=== PATIENT | male | born 1945 | race Caucasian/White ===

== ENCOUNTER 2017-08-09 19:03 | Emergency (ER) | payer MEDICARE, OTHER ==
[2017-08-09] MEDS ORDERED: Sodium Chloride 0.9% 10 ML Syringe FLUSH PRN (19:31)
--- NOTE | 2017-08-09 19:39 | EDM.PDOC ---
ED HPI GENERAL MEDICAL PROBLEM - General Chief Complaint: General Stated Complaint: weak Time Seen by Provider: 08/09/17 19:03 Source of Information: Reports: Patient, EMS, Family History Limitations: Reports: No Limitations - History of Present Illness INITIAL COMMENTS - FREE TEXT/NARRATIVE: Patient comes in tonight by ambulance patient had been feeling weak over the course the day and was unable to assist the patient also needed to call 911 for further assistance in guidance. Patient has an extensive history of cancer and is undergoing radiation for a right-sided tumor in his brain last treatment was in June. Patient was seen by his PCP last week and was also seen yesterday, he was super therapeutic INR greater than 9. Patient began feeling more weak yesterday according to the . Started having more facial droop which on the left side and more upper arm weakness as well. Patient had a fall late last night that required the police to assist in getting him back into bed. However the course of the day it's became more significant on his weakness needing to call ambulance to transport here for further evaluation. Onset: Gradual Duration: Getting Worse Location: Reports: Generalized Severity: Moderate - Related Data Allergies Allergy/AdvReac Type Severity Reaction Status Date / Time No Known Allergies Allergy Verified 08/09/17 19:38 Home Meds: Home Meds Albuterol [Proventil HFA] 2 puff INH Q4H PRN 02/06/16 [History] Albuterol/Ipratropium [DuoNeb 3.0-0.5 MG/3 ML] 3 ml NEB Q6HRRT 02/06/16 [History ] Allopurinol [Zyloprim] 300 mg PO DAILY 02/06/16 [History] Budesonide [Pulmicort] 0.5 mg NEB BID 02/06/16 [History] Codeine/guaiFENesin [Robitussin AC] 5 ml PO Q4H PRN 02/06/16 [History] Formoterol Fumarate [Foradil] 12 mcg INH BID 02/06/16 [History] Furosemide 40 mg PO DAILY 02/06/16 [History] Multivitamin [Multiple Vitamins] 1 tab PO DAILY 02/06/16 [History] Potassium Chloride [Klor-Con 10] 10 meq PO DAILY 02/06/16 [History] Tiotropium [Spiriva HandiHaler] 18 mcg INH DAILY 02/06/16 [History] Warfarin [Coumadin] 5 mg PO ASDIRECTED 02/06/16 [History] rOPINIRole [Requip] 0.25 mg PO TID 02/06/16 [History] sulfaSALAzine [Azulfidine] 500 mg PO BIDMEALS 02/06/16 [History] traZODone 150 mg PO BEDTIME 02/06/16 [History] Insulin Aspart [NovoLOG] 0 unit SUBCUT TIDMEALS pen 02/07/16 [Rx] Piperacillin/Tazobactam [Zosyn] 3.375 gm IV Q6H vial 02/07/16 [Rx] Sodium Chloride 0.9% [Normal Saline] 1,000 ml IV ASDIRECTED #0 bag 02/07/16 [Rx] Sodium Chloride 0.9% [Normal Saline] 1,000 ml IV Q6H #0 advbag 02/07/16 [Rx] guaiFENesin [Mucinex] 600 mg PO BID tab.er 02/07/16 [Rx] methylPREDNISolone Sod Succ [Solu-MEDROL] 75 mg IVPUSH Q8HR sdv 02/07/16 [Rx] Past Medical History Cardiovascular History: Reports: Afib, Heart Failure, SOB on Exertion Respiratory History: Reports: COPD, Pneumonia, Recurrent Endocrine/Metabolic History: Reports: Diabetes, Type II Oncologic (Cancer) History: Reports: Liver, Lung - Past Surgical History Cardiovascular Surgical History: Reports: None Oncologic Surgical History: Reports: None Social & Family History - Family History Family Medical History: Noncontributory - Tobacco Use Smoking Status *Q: Former Smoker Years of Tobacco use: 30 Packs/Tins Daily: 0.3 Used Tobacco, but Quit: Yes Month Tobacco Last Used: 1995 Second Hand Smoke Exposure: No - Recreational Drug Use Recreational Drug Use: No ED ROS GENERAL - Review of Systems Review Of Systems: See Below Constitutional: Reports: Malaise, Weakness HEENT: Reports: No Symptoms Respiratory: Reports: Shortness of Breath (pt on 4L O2 continuous to do lung CA) Cardiovascular: Reports: No Symptoms Endocrine: Reports: No Symptoms GI/Abdominal: Reports: No Symptoms : Reports: No Symptoms Musculoskeletal: Reports: No Symptoms Skin: Reports: No Symptoms, Other (abscess drained 2 days with packing placed. Abx started.) Neurological: Reports: No Symptoms Psychiatric: Reports: No Symptoms Hematologic/Lymphatic: Reports: Other (INR greater than 9 08/07/2017) Immunologic: Reports: No Symptoms ED EXAM, GENERAL - Physical Exam Exam: See Below Exam Limited By: No Limitations General Appearance: Alert, WD/WN, No Apparent Distress Ear Exam: Right Ear: TM normal Nose: Normal Inspection, Normal Mucosa, No Blood Throat/Mouth: Normal Inspection, Other (dry crack lips, dry mucous membranes) Neck: Normal Inspection Respiratory/Chest: Crackles, Accessory Muscle Use Cardiovascular: Normal Peripheral Pulses, Regular Rate, Rhythm GI/Abdominal: Normal Bowel Sounds, Soft Back Exam: Normal Inspection, Full Range of Motion Extremities: Normal Inspection Neurological: Alert, Oriented, Abnormal Gait, Abnormal Reflexes, Sensory/Motor Deficit Psychiatric: Normal Affect Skin Exam: Warm, Dry, Intact, Other (abscess left upper abdomen- packing in place. No redness/swelling/tenderness) EKG INTERPRETATION Time: 19:32 Rhythm: NSR (tachy) Rate (Beats/Min): 114 Course - Vital Signs Last Recorded V/S: Last Vital Signs Temp 36.9 C 08/09/17 19:03 Pulse 111 H 08/09/17 20:21 Resp 16 08/09/17 20:21 BP 118/72 08/09/17 20:21 Pulse Ox 98 08/09/17 20:21 - Orders/Labs/Meds Orders: Active Orders 24 hr Category Date Time Status EKG 12 Lead [EKG Documentation Completion] [RC] ROUTINE Care 08/09/17 19:28 Ordered Oxygen Therapy [RC] PRN Care 08/09/17 19:31 Active Chest Abdomen Pelvis wo Cont [CT] Stat Exams 08/09/17 19:33 Taken Head wo Cont [CT] Stat Exams 08/09/17 19:31 Taken Sodium Chloride 0.9% [Saline Flush] Med 08/09/17 19:31 Active 10 ml FLUSH ASDIRECTED PRN Peripheral IV Insertion Adult [OM.PC] Urgent Oth 08/09/17 19:31 Ordered Saline Lock Insert [OM.PC] Urgent Oth 08/09/17 19:31 Ordered Medication Orders Sodium Chloride (Saline Flush) 10 ml FLUSH ASDIRECTED PRN PRN Reason: Keep Vein Open Last Admin: 08/09/17 20:39 Dose: 10 ml Labs: Laboratory Tests 08/09/17 08/09/17 08/09/17 Range/Units 19:21 19:21 19:21 WBC 8.0 (4.0-10.0) x10^3/uL RBC 3.74 L (4.5-6.0) x10^6/uL Hgb 9.3 L D (14.0-18.0) g/dL Hct 30.9 L (40.0-52.0) % MCV 82.6 D (78.0-93.0) fL MCH 24.9 L (26.0-32.0) pg MCHC 30.1 L (32.0-36.0) g/dL RDW Coeff of Odilon 18.4 H (10.0-15.0) % Plt Count 318 (130-400) x10^3/uL Neut % (Auto) 81.2 H (50.0-80.0) % Lymph % (Auto) 9.6 L (25.0-50.0) % [place] % (Auto) 8.1 (2.0-11.0) % Eos % (Auto) 1.0 (0.0-4.0) % Baso % (Auto) 0.1 L (0.2-1.2) % PT 92.3 H (9.8-11.8) SEC INR 8.1 H* (2.0-3.5) APTT 84.4 H* (22.0-34.0) SEC POC Sodium (138-146) mmol/L POC Potassium (3.5-4.9) mmol/L POC Chloride (98-109) mmol/L POC Total CO2 (24-29) mmol/L POC BUN (8-26) mg/dL POC Creatinine (0.6-1.3) mg/dL POC Glucose (70-105) mg/dL Creatine Kinase 21 L (39-308) U/L Creatine Kinase Index TNP CK-MB (CK-2) TNP POC Troponin I (0.00-0.08) ng/mL C-Reactive Protein 6.4 H (<=0.9) mg/dL 08/09/17 08/09/17 Range/Units 19:29 19:32 WBC (4.0-10.0) x10^3/uL RBC (4.5-6.0) x10^6/uL Hgb (14.0-18.0) g/dL Hct (40.0-52.0) % MCV (78.0-93.0) fL MCH (26.0-32.0) pg MCHC (32.0-36.0) g/dL RDW Coeff of Odilon (10.0-15.0) % Plt Count (130-400) x10^3/uL Neut % (Auto) (50.0-80.0) % Lymph % (Auto) (25.0-50.0) % [place] % (Auto) (2.0-11.0) % Eos % (Auto) (0.0-4.0) % Baso % (Auto) (0.2-1.2) % PT (9.8-11.8) SEC INR (2.0-3.5) APTT (22.0-34.0) SEC POC Sodium 140 (138-146) mmol/L POC Potassium 3.8 (3.5-4.9) mmol/L POC Chloride 98 (98-109) mmol/L POC Total CO2 31 H (24-29) mmol/L POC BUN 16 (8-26) mg/dL POC Creatinine 0.8 (0.6-1.3) mg/dL POC Glucose 122 H (70-105) mg/dL Creatine Kinase (39-308) U/L Creatine Kinase Index CK-MB (CK-2) POC Troponin I 0.00 (0.00-0.08) ng/mL C-Reactive Protein (<=0.9) mg/dL Meds: Medications Generic Name Dose Route Start Last Admin Trade Name Freq PRN Reason Stop Dose Admin Sodium Chloride 10 ml 08/09/17 19:31 08/09/17 20:39 Saline Flush FLUSH 10 ml ASDIRECTED PRN Administration Keep Vein Open Discontinued Medications Generic Name Dose Route Start Last Admin Trade Name Freq PRN Reason Stop Dose Admin Dexamethasone 10 mg 08/09/17 21:16 Dexamethasone IVPUSH 08/09/17 21:17 ONETIME ONE Sodium Chloride 1,000 mls @ 1,000 mls/hr 08/09/17 20:29 08/09/17 20:36 Normal Saline IV 08/09/17 21:28 1,000 mls/hr ONETIME ONE Administration Levetiracetam 500 mg 08/09/17 21:16 Keppra PO 08/09/17 21:17 NOW ONE - Radiology Interpretation Free Text/Narrative:: CT result from today shows a 36 mm heterogenous mass containing a small amount of hemorrhage. As result is extensive vasogenic edema throughout the right cerebral hemisphere causing parietal effacement of the right lateral ventricle and leftward shift of approximately 5 mm at the septum pellucidum. - Re-Assessments/Exams Free Text/Narrative Re-Assessment/Exam: 08/09/17 21:25 Patient was completed with Dr. Butler and Dr. mathews on [facility] far or regarding the patient's condition and CT findings. This found that the patient would benefit from dexamethasone 10 mg which his daily dose was been DC' d in the clinic earlier in the week. Then continue the dexamethasone at 4 mg every 6 hour per the neurosurgeon orders. It is also suggested that we start him on Keppra 500 mg for seizure precautions related to the hemorrhagic shift in his brain. Neurosurgery states that at this point he does not Mindy is a surgical intervention due to other etiologies/complications the patient holds his medical past. The hospitalist Dr. Trinidad states that he would be happy to accept this patient to [facility] if the family is wanting. Did discuss with the family in great detail it is the recommendation at this patient be transferred closer to his oncologist. Departure - Departure Time of Disposition: 21:33 Disposition: DC/Tfer to Acute Hospital 02 Condition: Fair Clinical Impression: Weakness, Coagulation profile, abnormal - Discharge Information Referrals: Sarah Benitez MD [Primary Care Provider] - Forms: ED Department Discharge, Interfacility Transfer EMTALA - My Orders Last 24 Hours: My Active Orders 08/09/17 19:28 EKG 12 Lead [EKG Documentation Completion] [RC] ROUTINE 08/09/17 19:31 Oxygen Therapy [RC] PRN Head wo Cont [CT] Stat Sodium Chloride 0.9% [Saline Flush] 10 ml FLUSH ASDIRECTED PRN Peripheral IV Insertion Adult [OM.PC] Urgent Saline Lock Insert [OM.PC] Urgent 08/09/17 19:33 Chest Abdomen Pelvis wo Cont [CT] Stat - Assessment/Plan Last 24 Hours: My Active Orders 08/09/17 19:28 EKG 12 Lead [EKG Documentation Completion] [RC] ROUTINE 08/09/17 19:31 Oxygen Therapy [RC] PRN Head wo Cont [CT] Stat Sodium Chloride 0.9% [Saline Flush] 10 ml FLUSH ASDIRECTED PRN Peripheral IV Insertion Adult [OM.PC] Urgent Saline Lock Insert [OM.PC] Urgent 08/09/17 19:33 Chest Abdomen Pelvis wo Cont [CT] Stat
[2017-08-09] MEDS ORDERED: Sodium Chloride 0.9% 1,000 ML IV ONE (20:29)
[2017-08-09] MEDS ORDERED: levETIRAcetam Soln 500 MG/5 ML Cup PO ONE (21:16)
[2017-08-09] MEDS ORDERED: Dexamethasone 10 MG/ML SDV IVPUSH ONE (21:16)
[2017-08-09 23:48] VITALS: BP 121/77
== END 2017-08-09 22:20 | disposition short-term general hospital (02) ==
LOC: VM.ED 19:03
DX: R53.1 Weakness (principal); R79.1 Abnormal coagulation profile; E11.9 Type 2 diabetes mellitus without complications; Z79.899 Other long term (current) drug therapy; Z79.01 Long term (current) use of anticoagulants; Z79.4 Long term (current) use of insulin; Z87.891 Personal history of nicotine dependence
CPT/HCPCS: 36415; 70450; 71250; 74176; 80047; 82550; 84484; 85025; 85610; 85730; 86140; 93005; 94760; 96365; 96366; 96375; 99284; 99285; A9270; J1100; J7030; J7050

== ENCOUNTER 2017-08-15 12:54 | Inpatient (IN) | payer MEDICARE, OTHER ==
[2017-08-15] MEDS ORDERED: Take Home: Albuterol 6.7 GM Inhaler, 1 Inhaler Pack INH PRN (14:35)
[2017-08-15] MEDS ORDERED: Albuterol 0.083% 2.5 MG/3 ML Neb Soln NEB PRN (15:01)
[2017-08-15] MEDS: sulfaSALAzine 500 MG Tab.EC PO SCH (17:58)
[2017-08-15] MEDS: Nystatin Susp 100,000 Unit/ML 5 ML UD Cup PO SCH ×2 (17:58→20:36)
[2017-08-15] MEDS: Dexamethasone 4 MG Tab PO SCH (17:58)
[2017-08-15] MEDS: rOPINIRole 0.5 MG Tab PO SCH ×2 (20:36→21:06)
[2017-08-15] MEDS: oxyCODONE 5 MG Tab PO PRN (20:36)
[2017-08-15] MEDS: DULoxetine 60 MG Cap PO SCH (20:37)
[2017-08-15] MEDS: Melatonin 3 MG Tab PO SCH (20:37)
[2017-08-15] MEDS: atorvaSTATin 10 MG Tab PO SCH (20:37)
[2017-08-15] MEDS: Famotidine 20 MG Tab PO SCH (20:38)
[2017-08-15] MEDS: LORazepam 1 MG Tab PO PRN (21:04)
[2017-08-15] MEDS: FLUTICASONE FUROATE 200 MCG IH SCH (21:10)
--- NOTE | 2017-08-15 23:12 | HP ---
CHIEF COMPLAINT: Weakness. HISTORY OF PRESENT ILLNESS: The patient comes to us from [facility]. He had been hospitalized from 08/09/2017 until 08/15/2017 with: 1. Weakness, multifactorial. 2. Brain swelling from brain metastasis. 3. Recent steroid taper, now resumed. 4. Lower GI bleeding. 5. Hypercoagulable INR. 6. Anemia. 7. Metastatic lung cancer. 8. Bladder cancer. 9. Type 2 diabetes mellitus. 10.Severe COPD. 11.Diabetic neuropathy. When the patient presented initially to [facility] ER with weakness having fallen at home and unable to get up, he was noted to have melanotic stool. The patient had been on Levaquin for abdominal wound abscess that had been packed and drained. His INR as of 08/07 had been up to 9.5. It was down to 8.5 on 08/09, but he was sent to [facility] to be under the guidance of his oncologist. While he was in [facility], he did not require any blood transfusions. Discharge summary is not available to me yet. The patient was held from his Coumadin, and his INR did correct and did go down to 1.2. His hemoglobin had gone down to about 8.3 and stabilized. The patient was resumed on IV steroids to help with brain swelling. He was under the care of his oncologist. The patient's wound abscess just required some daily dressing changes, but his antibiotics were able to be stopped. His other medications were maintained at his baseline rate. He was noted to be weak on the left side due to his right brain tumor and is in need of swing bed for continued therapy. He is code level 3 with do-not- resuscitate, [id number] when he comes here. I did have a discussion with Dr. Hussein. He says he felt that he was not having brain bleeding going on and that it was just more swelling related to his steroid use and so therefore his Coumadin can be re-started. The patient will need to be carefully monitored for falls that would be a concern. MEDICATIONS: His medications at the time of transfer are: 1. Decadron 4 mg 1 p.o. b.i.d.. 2. Famotidine 20 mg 1 pill twice a day. 3. Melatonin 3 mg q.h.s. 4. Enoxaparin 40 mg subcu daily. 5. He had a sliding scale insulin, but that was not present at discharge. 6. Ativan. 7. He had albuterol 2 puffs q.4 hours p.r.n. While he was hospitalized, he had albuterol nebs, but he is not chronically on those. 8. While hospitalized, he was on Pulmicort nebs, but he was not sent home on them. 9. He is on Anoro inhaler 1 puff daily. 10.Cymbalta 60 mg 1 pill twice a day. 11.Lipitor 10 mg 1 pill at bedtime. 12.Requip 0.25 mg 1 pill 3 times a day. 13.Azulfidine 500 mg 1 pill twice a day. 14.Oxycodone IR 5 mg 1 every 6 hours as needed. 15.Tylenol 650 q.6 hours p.r.n. 16.Multivitamin 1 pill daily. 17.Proventil HFA 2 puffs q.4 hours p.r.n. 18.Arnuity 200 mcg 1 puff daily. 19.The patient is on oxygen 4 L at home. 20.Nystatin oral suspension. ALLERGIES: None known. PAST MEDICAL HISTORY: The patient has had lung cancer since 2013, stage IIB, non-small cell, left upper lobe. He had a left lower lobe lung cancer on February 03, which was stage IV. He had brain neoplasm that started in June 2017, 3.2 cm size on his right frontal lobe. He has left hemiparesis due to brain tumor. He did have a midline shift of his brain due to met tumor. He has had adenomatous colon polyps in 2012, hypercholesterolemia, primary insomnia, sleep disorder, periodic limb movement, and systolic heart murmur. He has had gout. He has had type 2 diabetes mellitus, controlled with diet unless on steroids and needed p.r.n. insulin. Bilateral PEs in 2012. He has had cataracts and posterior vitreous detachment, both eyes. He has had emphysema noted in 2001; rheumatoid arthritis, currently on Azulfidine, previously on methotrexate; polyneuropathy, multifactorial, seen by Neurology, on Neurontin and placed on Lyrica in 2013; vitamin D deficiency; obstructive sleep apnea; and hypertension. He has had lumbar disk herniation in 2013. MRI on 04/26/2014, he had L4-L5 and L5-S1 herniated disks, central canal stenosis, and bilateral foraminal involvement. He has had thyroid nodule in 2015. He is overweight. He has had non-small cell of his right lung. He has had oxygen dependence. He has had chemotherapy-induced neutropenia. He has had an abdominal aortic aneurysm on 05/03/2016, 3.3 cm. He has had chronic fatigue and weakness. He had myalgias, ganglion cyst. He has had anemia. He has had atopic dermatitis. He has had one presumed GI bleed due to hypo-coagulation, not had endoscopy. He has also had Dupuytren contracture. I am not sure when his last colonoscopy has been. PAST SURGICAL HISTORY: He has had bladder surgery x2 in 2006. He has had bronchoscopies with biopsies. He has had biopsy of soft tissue of his forearm. He son had cataract surgery. He has had cholecystectomy. He has had colonoscopy in the past. He has had excision of ganglion cyst of his thumb, eye surgery, hernia repair, neuroplasty and/or transposition of median nerve of carpal tunnel. FAMILY MEDICAL HISTORY: Rheumatoid arthritis in mother and aunt in his father's side. SOCIAL HISTORY: He is a former smoker. He is . Not currently using alcohol, he has used in the past. 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 He has 2 daughters, one who is a cardiac care nurse. REVIEW OF SYSTEMS: The patient does have weakness on his left side from his tumor. He does use oxygen. He does have a little bit of chronic cough. He does have a hoarse voice. No chest pain. No nausea. No diarrhea now. No bleeding or oozing. He does have an abscess on his left abdominal wall, which is being packed. He has had numbness on his extremities bilaterally. He does have a cough. PHYSICAL EXAMINATION: VITAL SIGNS: Show that his temperature is 36.1, pulse 94, blood pressure 122/73, respirations 18, sats are 94% on 4 L. SKIN: Pale, warm, and dry. ABDOMEN: Left abdominal wall is dressed. He has a 1 cm opening to his wound. No surrounding cellulitis noted. HEENT: Pupils are equal and reactive to light. Pharynx is normal. HEART: Regular rate and rhythm without murmurs or bruits. LUNGS: Have diminished breath sounds on bases. ABDOMEN: Soft. NEUROLOGIC: He is weaker on his left side. His trunk muscles on his left are weaker. He does have numbness of his feet. Poor sensation. PSYCHIATRIC: His mood is actually fairly positive, but does get discouraged at times due to his health problems. LABORATORY DATA: His lab that was done at [facility] had shown that his hemoglobin was about 8.3. At the time of discharge, his INR was down to 1.3. Basic metabolic profile was normal. Discharge summary is not available to me at this time. IMPRESSION: 1. Weakness, multifactorial. 2. Brain metastasis from lung primary. 3. Bilateral lung cancers. 4. History of pulmonary embolisms. 5. Bladder cancer. 6. Type 2 diabetes mellitus. 7. Chronic obstructive pulmonary disease, severe. 8. Rheumatoid arthritis. 9. Chronic neuropathies. 10.Anemia due to blood loss from lower gastrointestinal bleed. PLAN: The patient will be placed on swing bed. He will receive therapies for strengthening, OT, and PT. We will continue him on Lovenox. I did confer with Dr. Hussein today, and we will have the patient resume his Coumadin tomorrow because he is not actively bleeding and is at high risk for recurrence of DVTs. The patient is code level 3 status, but [id number], [id number]. The patient is currently still undergoing chemotherapy and/or radiation for his brain tumor, so therefore not eligible for hospice yet but as the patient's condition progresses, he may need to reconsider and be placed on hospice. He will continue on oxygen as well which is chronic for him. Also note, the patient does have chest wall pain which he does receive oxycodone for. 08/15/2017 14:57:16 MODL: 08/15/2017 23:06:33 /[id number]
[2017-08-16 07:23] LABS: CHLORIDE,CL 104 mmol/L (98-107); SODIUM,NA 142 mmol/L (136-145)
[2017-08-16] MEDS ORDERED: Warfarin 2.5 MG Tab PO SCH (08:00)
[2017-08-16] MEDS ORDERED: Enoxaparin 40 MG/0.4 ML Syringe SUBCUT SCH (08:00)
[2017-08-16] MEDS ORDERED: FLUTICASONE FUROATE 200 MCG IH SCH (08:00)
[2017-08-16] MEDS: sulfaSALAzine 500 MG Tab.EC PO SCH ×2 (08:04→17:05)
[2017-08-16] MEDS: Dexamethasone 4 MG Tab PO SCH ×2 (08:04→17:05)
[2017-08-16] MEDS: Nystatin Susp 100,000 Unit/ML 5 ML UD Cup PO SCH ×4 (08:04→20:59)
[2017-08-16] MEDS: Multivitamins with Iron/Calcium/Folic Acid/Minerals Tab PO SCH (08:04)
[2017-08-16] MEDS: Furosemide 20 MG Tab PO SCH (08:04)
[2017-08-16] MEDS: Famotidine 20 MG Tab PO SCH ×2 (08:04→20:58)
[2017-08-16] MEDS: DULoxetine 60 MG Cap PO SCH ×2 (08:04→20:59)
[2017-08-16] MEDS: VILANTEROL TR IH SCH (08:05)
[2017-08-16] MEDS: Enoxaparin 40 MG/0.4 ML Syringe SUBCUT SCH (08:05)
[2017-08-16] MEDS: UMECLIDINIUM BRM IH SCH (08:05)
[2017-08-16] MEDS: rOPINIRole 0.5 MG Tab PO SCH (08:09)
[2017-08-16] MEDS ORDERED: Warfarin 2.5 MG Tab PO ONE (08:45)
[2017-08-16] MEDS: Acetaminophen 325 MG Tab PO PRN (09:31)
--- NOTE | 2017-08-16 11:08 | PN ---
Progress Note for MARVIN HUBER Date: 08/16/2017 Room #: VM.217 SUBJECTIVE: The patient did well overnight. He slept well. It is noted that he takes his Requip differently than how it is prescribed. He has not had any falls last night. The patient commented that he takes his Coumadin usually 7.5 Saturday, Saturday, and Saturday and 5 mg rest of the week approximately, but to note he had recently had a high INR because of his antibiotic usage for his abscess on his abdomen. OBJECTIVE: Vital Signs: His temperature is 36.3, pulse 95, blood pressure is 145/87, respiratory rate is 20, sats are 99% on 3 L of oxygen. Skin: It is pale. He does have a bruise on his right lopez. Abdomen: His abdominal wound, outer gauze was removed and packing was removed. There was some white tissue, which appeared to be sebum type tissue that was able to be expressed. There was not active pus present. It was irrigated out with normal saline. It is approximately 1 cm deep, but there is no narrow tracking noted. There is good granulation tissue. There is no surrounding erythema on his abdominal wall. Heart: Regular rate and rhythm. Lungs: Clear to auscultation. LABORATORY DATA: Today, his hemoglobin is 9.0, which is stable. White blood cell count 7.7, platelets 320. INR is 1.0. Sodium 142, potassium is 4.3, creatinine 0.7, BUN 22, GFR is greater than 60. Glucose is 159. LFTs were normal. Albumin 2.6. IMPRESSION: 1. Left abdominal wall abscess, improving. 2. Weakness, improving. 3. Recent gastrointestinal bleed. 4. Anemia related to blood loss, improving. 5. Lung cancer with brain metastases. 6. Left-sided weakness due to brain metastases. PLAN: The patient will be placed on a higher dose of Coumadin. We will do daily INRs. He is on Lovenox until his INR is therapeutic from 2.0 to 3.0. The patient needs daily wound irrigation, but does not need to have the wound packed anymore, and will have lab done on Saturday. He will have daily INRs, but will have repeat hemoglobin and CBC on Saturday. Dr. Darvin Asher can cover over the weekend for monitoring INR levels. GM08/16/2017 08:33:59 MODL: 08/16/2017 09:56:19 /[id number]
[2017-08-16] MEDS: LORazepam 1 MG Tab PO PRN (20:57)
[2017-08-16] MEDS: atorvaSTATin 10 MG Tab PO SCH (20:57)
[2017-08-16] MEDS: FLUTICASONE FUROATE 200 MCG IH SCH (20:58)
[2017-08-16] MEDS: Melatonin 3 MG Tab PO SCH (20:58)
[2017-08-16] MEDS: rOPINIRole 0.5 MG Tab PO PRN (20:58)
[2017-08-16] MEDS: oxyCODONE 5 MG Tab PO PRN (20:58)
[2017-08-17] MEDS: Acetaminophen 325 MG Tab PO PRN (06:34)
[2017-08-17] MEDS: Enoxaparin 40 MG/0.4 ML Syringe SUBCUT SCH (08:38)
[2017-08-17] MEDS: Furosemide 20 MG Tab PO SCH (08:39)
[2017-08-17] MEDS: Famotidine 20 MG Tab PO SCH ×2 (08:39→20:27)
[2017-08-17] MEDS: DULoxetine 60 MG Cap PO SCH ×2 (08:39→20:26)
[2017-08-17] MEDS: Dexamethasone 4 MG Tab PO SCH ×2 (08:39→17:30)
[2017-08-17] MEDS: Multivitamins with Iron/Calcium/Folic Acid/Minerals Tab PO SCH (08:40)
[2017-08-17] MEDS: Warfarin 5 MG Tab PO SCH (08:40)
[2017-08-17] MEDS: Nystatin Susp 100,000 Unit/ML 5 ML UD Cup PO SCH ×4 (08:41→20:25)
[2017-08-17] MEDS: sulfaSALAzine 500 MG Tab.EC PO SCH ×2 (08:41→17:30)
[2017-08-17] MEDS: VILANTEROL TR IH SCH (08:43)
[2017-08-17] MEDS: UMECLIDINIUM BRM IH SCH (08:43)
[2017-08-17] MEDS: oxyCODONE 5 MG Tab PO PRN ×2 (10:31→20:25)
[2017-08-17] MEDS: LORazepam 1 MG Tab PO PRN (20:25)
[2017-08-17] MEDS: atorvaSTATin 10 MG Tab PO SCH (20:26)
[2017-08-17] MEDS: rOPINIRole 0.5 MG Tab PO PRN (20:26)
[2017-08-17] MEDS: Melatonin 3 MG Tab PO SCH (20:26)
[2017-08-17] MEDS: FLUTICASONE FUROATE 200 MCG PO SCH (20:27)
[2017-08-18] MEDS: Acetaminophen 325 MG Tab PO PRN ×2 (01:27→14:51)
[2017-08-18] MEDS: Nystatin Susp 100,000 Unit/ML 5 ML UD Cup PO SCH ×4 (08:18→20:15)
[2017-08-18] MEDS: DULoxetine 60 MG Cap PO SCH ×2 (08:18→20:15)
[2017-08-18] MEDS: Enoxaparin 40 MG/0.4 ML Syringe SUBCUT SCH (08:18)
[2017-08-18] MEDS: Multivitamins with Iron/Calcium/Folic Acid/Minerals Tab PO SCH (08:18)
[2017-08-18] MEDS: Famotidine 20 MG Tab PO SCH ×2 (08:19→20:15)
[2017-08-18] MEDS: Furosemide 20 MG Tab PO SCH (08:19)
[2017-08-18] MEDS: sulfaSALAzine 500 MG Tab.EC PO SCH ×3 (08:19→18:05)
[2017-08-18] MEDS: Dexamethasone 4 MG Tab PO SCH ×3 (08:20→18:04)
[2017-08-18] MEDS: Warfarin 5 MG Tab PO SCH (08:20)
[2017-08-18] MEDS: VILANTEROL TR IH SCH (08:21)
[2017-08-18] MEDS: UMECLIDINIUM BRM IH SCH (08:21)
[2017-08-18] MEDS: oxyCODONE 5 MG Tab PO PRN ×2 (09:11→21:48)
[2017-08-18] MEDS: atorvaSTATin 10 MG Tab PO SCH (20:15)
[2017-08-18] MEDS: Melatonin 3 MG Tab PO SCH (20:15)
[2017-08-18] MEDS: FLUTICASONE FUROATE 200 MCG PO SCH (20:18)
[2017-08-18] MEDS: rOPINIRole 0.5 MG Tab PO PRN (21:48)
[2017-08-18] MEDS: LORazepam 1 MG Tab PO PRN (21:48)
[2017-08-19] MEDS: Acetaminophen 325 MG Tab PO PRN ×2 (04:11→11:04)
[2017-08-19 06:56] VITALS: BP 129/75
[2017-08-19 07:25] LABS: CHLORIDE,CL 103 mmol/L (98-107); SODIUM,NA 141 mmol/L (136-145)
[2017-08-19] MEDS ORDERED: Warfarin 2.5 MG Tab PO ONE (09:02)
[2017-08-19] MEDS: Enoxaparin 40 MG/0.4 ML Syringe SUBCUT SCH (09:09)
[2017-08-19] MEDS: Furosemide 20 MG Tab PO SCH (09:46)
[2017-08-19] MEDS: sulfaSALAzine 500 MG Tab.EC PO SCH (09:47)
[2017-08-19] MEDS: Multivitamins with Iron/Calcium/Folic Acid/Minerals Tab PO SCH (09:47)
[2017-08-19] MEDS: Nystatin Susp 100,000 Unit/ML 5 ML UD Cup PO SCH ×2 (09:47→13:08)
[2017-08-19] MEDS: Famotidine 20 MG Tab PO SCH (09:47)
[2017-08-19] MEDS: oxyCODONE 5 MG Tab PO PRN (09:48)
[2017-08-19] MEDS: DULoxetine 60 MG Cap PO SCH (09:51)
[2017-08-19] MEDS: Dexamethasone 4 MG Tab PO SCH (09:51)
[2017-08-19] MEDS: UMECLIDINIUM BRM IH SCH (09:54)
[2017-08-19] MEDS: VILANTEROL TR IH SCH (09:54)
[2017-08-19] MEDS: Warfarin 5 MG Tab PO SCH (10:00)
--- NOTE | 2017-08-19 10:06 | PN ---
Progress Note for MARVIN HUBER Date: 08/19/2017 Room #: VM.217 SUBJECTIVE: He is doing much better today. He has had no further episodes of melena. He is feeling stronger, breathing okay. He is eager for discharge home. To note, the patient's was also hospitalized with PE and so we are waiting until she is stable, until he cannot be discharged home. She comments that he has had some mild forgetfulness. We are awaiting a cognitive evaluation on the patient. The patient, otherwise, who had no problems with his left abdominal wound and he is felt to be at his baseline self. OBJECTIVE: Vital Signs: His temperature is 36.9, pulse 96, blood pressure is 129/75, respiratory rate is 20, saturations are 100% on 4 L. His blood sugars have ranged from 190s down to 111. Skin: Pale, warm, and dry. Left abdominal wall is filling in per nursing.. Wound is not draining. It is healing in. Heart: Regular rate. Lungs: Diminished breath sounds on bases. Neurologic: The patient is weaker on his left side. His body does sit towards the left. LABORATORY DATA: His lab today shows his hemoglobin is 9.4, which is stable. His white blood cell count is 8.8. INR is up to 1.2. Sodium is 141, potassium 4.2, creatinine 0.7. GFR is greater than 60. IMPRESSION: 1. Weakness, multifactorial. 2. Left abdominal wound abscess, improving. 3. Gastrointestinal bleeding, which has settled down. 4. Anemia, which is stabilized. 5. Lung cancer with brain metastases on right frontal area.. 6. Cognitive dysfunction. 7. COPD 8. Type II DM. PLAN: We are awaiting cognitive evaluation today. We will increase his Coumadin today to 7.5 mg, so that will be on 2 days a week and his 5 mg the rest of the week. He will need another INR to be done on Saturday. We will have the patient return to see me in 10 days' time. To note, the patient will require home health because of wound cares as he is homebound and require others to help him come to the clinic. I will be monitoring his home health care progress. The patient chooses [facility]. The patient eventually may need to go on hospice, possibly palliative care program may be sooner than later. GM08/19/2017 09:01:39 MODL: 08/19/2017 09:31:21 /[id number]
--- NOTE | 2017-08-21 07:47 | DISCH ---
PRIMARY DIAGNOSES: 1. Weakness secondary to metastatic brain tumor. 2. Diagnosis of brain swelling from brain metastases. 3. Recent steroid taper. 4. Lower gastrointestinal bleeding, stable. 5. Hypercoagulable state. 6. Anemia secondary to blood loss. 7. Metastatic lung cancer. 8. Bladder cancer. 9. Type 2 diabetes mellitus. 10.Severe chronic obstructive pulmonary disease. 11.Diabetic neuropathy. 12.Left abdominal wound abscess with packing. HOSPITAL COURSE: The patient is a 71-year-old male who was transferred from [place] in [place]. He had been admitted to [place] on 08/09/2017 with acute left hemiparesis, midline shift of his brain secondary to falling from brain metastases, acute GI blood loss secondary to supratherapeutic INR with INR over 9. The patient had a recent steroid taper of prednisone. However, he seemed to have more neurological symptoms. Head CT was repeated and showed more brain swelling. The patient had a recent abdominal wound abscess that was incised and drained. He had been on Levaquin and that had most likely caused his INR to increase as well as change in medical condition. The patient had received Pepcid to be for prophylaxis for ulcerative bleed. The patient was indeterminate about use of medication for lung cancer and affordability. The patient's hemoglobin at the time of admission to [facility] was 8.8, and his INR was 1.2. To note, the patient has had previous pulmonary emboli and after discussion with his oncologist, that he should be resumed on Coumadin once he is stable. The patient's status is a code level 3 with do not resuscitate and do not intubate. Summary Of [facility] Bed Course: The patient received physical therapy and occupational therapy. He had his blood sugars checked. His prednisone was being tapered down. His hemoglobin was 9.0 on admission. By 08/19/2017, it was 9.4. His INR was 1.0. He was on Lovenox. His Coumadin was restarted at 7.5 on 08/16/2017, 5 mg on 08/17/2017, 5 mg on 08/18/2017, and then 7.5 again on 08/19/2017. The patient's lab on 08/19/2017 showed sodium 141, potassium 4.2, and creatinine 0.7. GFR greater than 60. Blood sugars ranged from 110s to 190s. The patient's vital signs show that his blood pressure did improve. It had gone down to 98/72 and it was up to 129/75. The patient did have a cognitive evaluation done by June Dutta on 08/19/2017, but that summary is not available at the time of this discharge summary. The patient was receiving oxycodone for nocturnal leg cramps, which did help significantly. The patient had been on nebs while here, but he will go back home on his maintenance inhalers. The patient's wound had packing removed, which just had a nice granulation tissue at the base, approximately 1 cm in size. It was washed daily with salt water and then placed a gauze pad over it. DISCHARGE MEDICATIONS: The patient's medications at discharge will be multivitamin 1 pill daily; Azulfidine 500 mg 1 pill twice a day; furosemide 20 mg daily; albuterol 2 puffs q.4 hours p.r.n.; Requip 0.25 mg 1 pill 3 times a day (to note, the patient may be taking medication differently at home); nystatin 1000 units/mL, 6 mL q.i.d.; Lipitor 10 mg pills 1 at bedtime; Cymbalta 60 mg 1 p.o. b.i.d.; Anoro inhaler 1 puff daily; Arnuity inhaler 1 puff daily; Lorazepam 1 mg 1 pill daily p.r.n.; melatonin 3 mg 1 pill at bedtime; famotidine 20 mg 1 p.o. b.i.d.; dexamethasone 4 mg tablet daily and dexamethasone 4 mg 1 p.o. b.i.d.; oxycodone 5 mg 1 pill q.6 hours p.r.n.; and acetaminophen 650 q.4 hours p.r.n. Coumadin 7.5 mg one pill Mon and Thur, and 5 mg Tu,We,F, Sa,Gates. A [id number] evaluation was held today with the patient for assessment. He does need Home Health to assess his oxygenation as well as help with wound cares. The patient is homebound. He is on oxygen chronically. He is weak with some left weakness. He would require others to bring him to the hospital appointments. I will be monitoring his progress with Home Health. To note, patient is on home oxygen. He is to eat a heart-healthy diet. I would like to see him back in 2 weeks' time in the clinic for a recheck. He will need wound care with dressing changes daily or less depending on wound drainage. To note, the patient's was also hospitalized concurrently with bilateral pulmonary emboli. So, physically, she is not able to help the patient as well either. The patient picked [facility]. At some point in time, the patient may need consult for palliative hospice care, as the patient's cognitive changes are a little bit of short-term memory loss. He will need to have and INR done on 08/21/17. Time to do discharge planning was over 30 minutes. GM08/19/2017 17:49:19 MODL: 08/20/2017 16:13:23 /[id number] MARI
[2017-08-26] MEDS ORDERED: Dexamethasone 4 MG Tab PO SCH (08:00)
== END 2017-08-19 13:45 | disposition home health service (06) | DRG 948 ==
LOC: VM.MS 12:59
PROVIDERS: ADMIT Family Medicine; ATTEND Family Medicine
DX: R53.1 Weakness (principal); C34.90 Malignant neoplasm of unspecified part of unspecified bronchus or lung; C79.31 Secondary malignant neoplasm of brain; K92.2 Gastrointestinal hemorrhage, unspecified; D68.59 Other primary thrombophilia; G81.94 Hemiplegia, unspecified affecting left nondominant side; L02.211 Cutaneous abscess of abdominal wall; D50.0 Iron deficiency anemia secondary to blood loss (chronic); C67.9 Malignant neoplasm of bladder, unspecified; E11.40 Type 2 diabetes mellitus with diabetic neuropathy, unspecified; J44.9 Chronic obstructive pulmonary disease, unspecified; Z79.01 Long term (current) use of anticoagulants; Z79.899 Other long term (current) drug therapy; E78.00 Pure hypercholesterolemia, unspecified; F51.01 Primary insomnia; M10.9 Gout, unspecified; Z86.711 Personal history of pulmonary embolism; M06.9 Rheumatoid arthritis, unspecified; G47.33 Obstructive sleep apnea (adult) (pediatric); E55.9 Vitamin D deficiency, unspecified; I10 Essential (primary) hypertension; E66.3 Overweight
CPT/HCPCS: 36415; 80048; 80053; 82962; 85025; 85610; 94760; 97161-GP; 97165-GO; A9270-GY; G0515-GO; J1650; J7620-GY; J8540